=== PATIENT | female | born 1950 | race Caucasian/White ===

== ENCOUNTER → 2020-04-25 07:50 | Outpatient (CLI) | payer MEDICARE, OTHER, SELFPAY ==
--- NOTE | 2020-04-25 | DI.ECHO.S_ITS ---
[facility] +---------+ : : [address] : [address] [place] : : : : [id number] : : : : Phone: [phone]+ Echocardiogram Report + + :Name: TEQUILA HOGAN Study Date: 04/25/2020 Height: 71 in : :[facility] Weight: 293 lb: : Gender: Female BSA: 2.5 m2 : :: 1950 Age: 69 yrs BP: 104/ mmHg : :Reason For Study: LEFT HEART FAILURE : : Performed By: Lisa Figueroa : + + Interpretation Summary Diastolic blood pressure could not be reliably heard. There is moderate global hypokinesis of the left ventricle. Left ventricular systolic function is moderately reduced. The right ventricle is normal size. Right ventricular systolic function is mildly reduced. The right ventricular systolic pressure is estimated to be at least 37 mmHg based on an estimated right atrial pressure of 15 mm Hg. The left atrium is moderately dilated. -These findings are overall similar to the prior study. Procedure: A two-dimensional transthoracic echocardiogram with color flow and Doppler was performed. Comparison is made with the echocardiogram of 09/26/2019. Diastolic blood pressure could not be reliably heard. The patient had frequent PVCs during the exam. The patient was in atrial fibrillation with heart rates between 81-113 bpm during the exam. Left Ventricle: The left ventricle is normal in size. There is normal left ventricular wall thickness. There is no ventricular septal defect visualized. The ejection fraction is estimated to be 35-40%. Left ventricular systolic function is moderately reduced. There is moderate global hypokinesis of the left ventricle. Diastolic function could not be accurately assessed due to atrial fibrillation. Right Ventricle: The right ventricle is normal size. Right ventricular systolic function is mildly reduced. Atria: The left atrium is moderately dilated. The right atrium is mildly dilated. There is no Doppler evidence for an interatrial shunt. Mitral Valve: There is mild mitral annular calcification. The mitral valve leaflets are slightly calcified. There are multiple regurgitant jets present. There is mild mitral regurgitation. Aortic Valve: The aortic valve is trileaflet. The aortic valve opens well. There is mild aortic valve sclerosis. No aortic regurgitation is present. Tricuspid Valve: The tricuspid valve leaflets are thin and pliable. There is mild tricuspid regurgitation. The right ventricular systolic pressure is estimated to be at least 37 mmHg based on an estimated right atrial pressure of 15 mm Hg. Pulmonic Valve: The pulmonic valve is normal in structure and function. There is a trace or physiologic amount of pulmonic regurgitation. Great Vessels: The aortic root is normal size. The ascending aorta is mildly enlarged. The aortic arch is mildly enlarged. The IVC is dilated (diameter is greater than 2.1 cm) and it collapses less than 50% with a sniff. This suggests a high right atrial pressure of 15 mm Hg. Pericardium/ Pleura There is a trivial pericardial effusion noted. MMode/2D Measurements & Calculations LVIDd: 4.7 cm LVOT diam: 2.0 cm LVIDs: 4.0 cm Ao root diam: 3.4 cm FS: 15.1 % asc Aorta Diam: 3.8 cm EPSS: 0.86 cm Ao Arch Diam (Prox Trans): 3.6 cm IVSd: 1.00 cm LVPWd: 0.81 cm LV tamez. diameter/BSA (cm/m^2): 1.9 LV sys. diameter/BSA (cm/m^2): 1.6 LA A2 area: 29.8 cm2 RA long axis: 6.7 cm LA A4 area: 32.4 cm2 RA area: 25.8 cm2 LA length (vol): 6.9 cm RA vol: 84.8 ml LA vol: 118.6 ml RA : 34.2 ml/m2 LA vol index: 47.8 ml/m2 IVC diam: 2.7 cm RVD1 (basal): 4.2 cm LVAd ap4: 29.5 cm2 RVD2 (mid): 3.1 cm LVAs ap4: 21.4 cm2 TAPSE: 1.6 cm LVLs ap4: 6.3 cm Doppler Measurements & Calculations Ao V2 max: 146.4 cm/sec LVOT Max Fernando: 65.1 cm/sec Ao V2 mean: 110.0 cm/sec LV V1 max P.7 mmHg Ao max P.6 mmHg LV V1 VTI: 12.8 cm Ao mean P.3 mmHg CHRISTIAN(I,D): 1.4 cm2 Ao V2 VTI: 29.7 cm CHRISTIAN(V,D): 1.4 cm2 sev ratio: 0.43 CHRISTIAN indexed to BSA (cm^2/m^2): 0.56 MV E max fernando: 96.4 cm/sec TR max fernando: 234.2 cm/sec Med Peak E' Fernando: 7.5 cm/sec TR max P.0 mmHg E/E' med: 12.9 PA V2 max: 67.7 cm/sec Lat Peak E' Fernando: 10.6 cm/sec PA V2 mean: 44.5 cm/sec E/E' lat: 9.1 PA mean P.89 mmHg E/e' average: 11.0 PA Accel Time: 0.08 sec MR ERO: 0.07 cm2 MR PISA: 0.79 cm2 SV(LVOT): 41.4 ml MR flow rate: 29.1 cm3/sec MR PISA radius: 0.35 cm Electronically signed by: David Girard M.D. on Reading Physician:04/28/2020 01:27 PM
== END ==
PROVIDERS: Referring Provider Hospitalist; Visit Provider Hospitalist
DX: I08.3 Combined rheumatic disorders of mitral, aortic and tricuspid valves (principal); I77.89 Other specified disorders of arteries and arterioles; I50.1 Left ventricular failure, unspecified
CPT/HCPCS: 93306

== ENCOUNTER 2020-05-02 15:48 | Emergency (ER) | payer MEDICARE, OTHER, SELFPAY ==
[2020-05-02 16:04] VITALS: BP 140/81; PULSE 68; RESP 18; TEMP 36.8; O2SAT 100; BMI 41.1
--- NOTE | 2020-05-02 16:56 | ED_ITS ---
HPI - Fall General Chief Complaint: Fall Stated Complaint: fall yesterday, hurt her chest Time Seen by Provider: 05/02/20 16:56 Source: patient Mode of arrival: Family Vehicle History of Present Illness HPI Narrative: 69-year-old woman with a history of atrial fibrillation anticoagulated on Eliquis who stumbled over some wiring and fell onto a sewing cabinet yesterday at approximately 10 in the morning. She landed with the majority of the emphasis on the edge of the covered cutting across the upper portion of her chest with the edge of a cabinet ending at approximately her humeral head. She was seen by her telecommunication equipment repairer today in anticipation of scheduling an elective cardioversion for her atrial fibrillation. Her telecommunication equipment repairer was concerned about the level of pain of which she complains after the fall over her upper chest. Since her into the emergency room with requests for further evaluation. She denies fever, cough, chills, nausea, vomiting, abdominal pain, lower extremity edema, palpitations, orthopnea. Related Data Allergies Allergy/AdvReac Type Severity Reaction Status Date / Time morphine [MORPHINE] Allergy Unknown NAUSEA/VOMI Verified 05/02/20 16:09 TING Penicillins [PENICILLINS] Allergy Unknown CAN'T Verified 05/02/20 16:09 REMEMBER- MANY YEARS AGO Review of Systems Review of Systems Narrative: Pertinent positive and negative findings as per HPI Remainder of review of systems is otherwise unremarkable for Constitutional: Fevers, chills, weakness ENT: No sore throat, neck pain, ear pain CV: , palpitations, dyspnea on exertion Respiratory: Cough, wheeze, dyspnea GI: Nausea, vomiting, diarrhea, change in bowel habits, black or bloody stools : Dysuria, hematuria, flank pain MS: Muscle weakness, numbness, joint swelling or warmth Skin: Rashes, nonhealing lesions Neuro: Syncope, dizziness, tingling Patient History Medical History A-fib (Acute) Social History Smoking Status: Former smoker Smoking Status: Former smoker alcohol intake frequency: holidays/special occasions only Substance Use Type: does not use Exam Narrative Exam Narrative: General: Healthy appearing, in mild distress secondary to pain. Able to give a complete and coherent history. Well-nourished well-developed HEENT: Moist mucous membranes, normal sclera with reactive pupils, Neck: No JVD, supple Respiratory: Lungs are clear to auscultation, no wheezing no rales no rhonchi. Full and symmetrical air movement Cardiac: Irregularly irregular however, no murmurs no bruits Chest: Tenderness in the linear band across the upper part of her chest focusing in the right upper chest and culminating in significant pain in the right upper humerus with a large hematoma in the medial aspect of the arm consistent with where she landed on the edge of the covered. She does not have specific reproducible sternal pain and there is no bruising or contusion over the anterior chest. No specific or reproducible pain with manipulation of her ribcage. Abdomen: Soft nontender good bowel tones, no flank pain Skin: Warm and dry, no rashes Neurologic: Grossly neurologically intact with no obvious asymmetries or abnormalities Extremities: Contusion over the left patella, and minor confusion over the medial right wrist. Significant tenderness to the right upper extremity however neurovascularly intact distally Psych: Cooperative, appropriate insight and affect Initial Vital Signs Initial Vital Signs: Vital Signs Temperature 98.2 F 05/02/20 16:04 Pulse Rate 68 05/02/20 16:04 Respiratory Rate 18 05/02/20 16:04 Blood Pressure 140/81 05/02/20 16:04 Pulse Oximetry 100 05/02/20 16:04 Course Orders Ordered: ED Orders 05/02/20 16:48 EKG-12 Lead Stat 05/02/20 17:02 XR humerus RT 2V Stat XR ribs RT min 3V w CXR1V Stat Vital Signs Vital signs: Vital Signs - 8 hr 05/02/20 16:04 05/02/20 17:00 05/02/20 18:01 Temperature 98.2 F Pulse Rate 68 101 H 104 H Respiratory Rate 18 17 25 H Blood Pressure 140/81 Blood Pressure [Right Arm] 124/95 H 124/95 H Pulse Oximetry 100 98 100 MDM - Fall Medical Records Attestation: I reviewed the patient's medical records. Imaging Data Chest and ribs: Radiologist's Impression: IMPRESSION: Chest without acute cardiopulmonary abnormalities. No displaced, acute rib fractures visualized. Dictated by: Sheldon Wall M.D. on 05/02/2020 at 17:49 X-ray humerus: Radiologist's Impression: IMPRESSION: Right humerus without acute fracture or dislocation. Moderate degenerative changes of the right acromioclavicular joint. If there is persistent clinical concern for occult fracture given adequate mechanism of injury, consider repeat imaging in 10-14 days. Dictated by: Sheldon Wall M.D. on 05/02/2020 at 17:48 ECG Data Attestation: I personally reviewed and interpreted this ECG as follows: Interpretation: AFib at 101 beats per minute PVCs No significant ST T wave changes No acute ischemia MDM Narrative Medical decision making narrative: 69-year-old woman who had a mechanical fall yesterday. Concerned about rib fractures or other significant pathology. X- rays as well as upper humerus showed no specific bony injury. She is reassured. She prefers to use Tylenol only and is anticoagulated so can not use ibuprofen. Will give her a small supply of Percocet to use for severe pain over the next 22 days should it be required. She is safe for home discharge. Discharge Plan Departure Patient Disposition: Home Clinical Impression: Anterior chest wall pain Fall Qualifiers: Encounter type: initial encounter Qualified Code(s): W19.XXXA - Unspecified fall, initial encounter Contusion Qualifiers: Encounter type: initial encounter Contusion area: thoracic wall Contusion of thoracic wall detail: front wall of thorax Laterality: right Qualified Code(s): S20.211A - Contusion of right front wall of thorax, initial encounter Activity Restrictions/Additional Instructions: Thank you for coming in today There is no bony injury to your chest ribs or your right arm. It is common to have the most pain in the 1st 1-2 days after your injury. You can continue to use Tylenol as needed. For pain that is not controlled with Tylenol you can instead take 1 Tylenol and half to 1 Percocet. If you choose to take the Percocet please recognize that narcotics can cause constipation any need to make sure your taking stool softeners as well. Please stay as active as possible. Gentle movement does help muscular injuries and contusions heal a bit faster. Please follow-up with your telecommunication equipment repairer as previously scheduled regarding her atrial fibrillation. If you develop new or concerning symptoms, you are welcome to return to the emergency department and I am happy to re-evaluate. I wish you the best.
[2020-05-02 17:00] VITALS: BP 124/95; PULSE 101; RESP 17; O2SAT 98
--- NOTE | 2020-05-02 17:02 | DI.RAD.S_ITS ---
PROCEDURE: XR HUMERUS RT 2V INDICATIONS: trauma TECHNIQUE: 2 views of the humerus were acquired. COMPARISON: None. FINDINGS: Bones: No acute fractures or dislocations. No suspicious bony lesions. Moderate degenerative changes of the right acromial clavicular joint. Soft tissues: No suspicious soft tissue calcifications. IMPRESSION: Right humerus without acute fracture or dislocation. Moderate degenerative changes of the right acromioclavicular joint. If there is persistent clinical concern for occult fracture given adequate mechanism of injury, consider repeat imaging in 10-14 days. Dictated by: Sheldon Wall M.D. on 05/02/2020 at 17:48 Approved by: Sheldon Wall M.D. on 05/02/2020 at 17:48
--- NOTE | 2020-05-02 17:02 | DI.RAD.S_ITS ---
PROCEDURE: XR RIBS RT MIN 3V W CXR 1V INDICATIONS: trauma TECHNIQUE: 2 views of the right ribs were acquired, along with a single view chest. COMPARISON: None. FINDINGS: Surgical changes and devices: Surgical clips in right upper quadrant compatible with prior cholecystectomy.. Bones and chest wall: No fractures or dislocations. No suspicious bony lesions. Overlying soft tissues appear unremarkable. Moderate degenerative changes of the right acromioclavicular joint. Lungs and pleura: No pleural effusions or pneumothorax. Lungs appear clear. Mediastinum: Mediastinal contours appear normal. Heart size is normal. IMPRESSION: Chest without acute cardiopulmonary abnormalities. No displaced, acute rib fractures visualized. Dictated by: Sheldon Wall M.D. on 05/02/2020 at 17:49 Approved by: Sheldon Wall M.D. on 05/02/2020 at 17:50
[2020-05-02 18:01] VITALS: BP 124/95; PULSE 104; RESP 25; O2SAT 100
[2020-05-02 18:18] VITALS: BP 142/92; PULSE 84; RESP 20; O2SAT 98
== END 2020-05-02 18:23 | disposition home or self-care (01) ==
PROVIDERS: Emergency Provider Emergency Medicine
DX: R07.89 Other chest pain (principal); S20.211A Contusion of right front wall of thorax, initial encounter; W19.XXXA Unspecified fall, initial encounter; I48.91 Unspecified atrial fibrillation; Z79.01 Long term (current) use of anticoagulants
CPT/HCPCS: 71101; 73060; 93005; 99283; 99284

== ENCOUNTER → 2021-01-26 13:59 | Outpatient (CLI) | payer MEDICARE, OTHER, SELFPAY ==
--- NOTE | 2021-01-26 14:07 | DI.CT.S_ITS ---
PROCEDURE: CT ANGIO CHEST INDICATIONS: Family history of ischemic heart disease TECHNIQUE: After the administration of intravenous contrast, 2.5 mm thick sections acquired from the lung apices to the posterior lung bases. Maximum intensity projection (MIP) oblique sagittal reformats were then acquired parallel to the aortic arch. For radiation dose reduction, the following was used: automated exposure control. COMPARISON: [facility], CT, CT ANGIO CHEST PE, 09/25/2019, 14:04. FINDINGS: Image quality: Excellent. Aorta: Aorta and great vessels are normal in size. No mural irregularity or contrast extravasation to suggest aortic injury. Mediastinum: No hematomas. Heart size is normal. No pericardial effusion. No mediastinal or hilar adenopathy by size criteria. Central pulmonary arteries are normal in size. Esophagus is normal in caliber. No hiatal hernia. Lungs and pleura: No acute airspace opacities. No pleural effusions or pneumothorax. Central and peripheral airways are patent and normal in caliber. Bones and chest wall: No axillary adenopathy by size criteria. Thyroid gland appears normal. No suspicious bony lesions. No vertebral body compression fractures. Abdomen: Visualized upper abdominal solid organs and bowel loops appear normal. IMPRESSION: There is no sign of pulmonary embolus and nose area of aortic aneurysm or dissection. The lung parenchyma shows no findings suggestive of active infection or underlying neoplasm. Dictated by: Aristides Escobar M.D. on 01/26/2021 at 16:27 Approved by: Aristides Escobar M.D. on 01/26/2021 at 16:29
[2021-01-26 14:52] LABS: BUN Creatinine Ratio 21.2 (6-22); Blood Urea Nitrogen 28 mg/dL (7-17); Calcium 9.7 mg/dL (8.4-10.2); Carbon Dioxide 26 mmol/L (22-32); Chloride 105 mmol/L (98-107); Estimated Glomerular Filt Rate 39.9 mL/min (>60); Glucose 101 mg/dL (80-110); HEMOLYSIS < 15 (0-50); Potassium 4.9 mmol/L (3.4-5.1); Sodium 141 mmol/L (137-145)
== END ==
PROVIDERS: Nurse Practitioner; PCP Internal Medicine Cardiovascular Disease; Referring Provider Internal Medicine Cardiovascular Disease; Visit Provider Internal Medicine Cardiovascular Disease
DX: I11.0 Hypertensive heart disease with heart failure (principal); I50.22 Chronic systolic (congestive) heart failure; Z82.49 Family history of ischemic heart disease and other diseases of the circulatory system
CPT/HCPCS: 36415; 71275; 80048; Q9967